=== PATIENT | male | born 1990 | race American Indian/Alaskan Native ===

== ENCOUNTER 2018-01-10 22:26 | Observation (INO) | payer BC, OTHER ==
[~2018-01-10] VITALS: Ht 182.9 cm; Wt 70.9 kg
--- NOTE | 2018-01-11 02:13 | NUR ---
ADMIT TO CCU PER STRETCHER, STOOD AND TRANSFERED TO BED. NAUSEATED AND DRY HEAVES WITH MOVEMENT. HR INC TO 150'S THEN BACK TO ONE TEENS.NAUSEA IMPROVED WITH REST. DR DUBOIS IN TO SEE PT. DOES HAVE RAHMAN, STATES HAS HX OF OCC RAHMAN'S. BOLUS OF LR INFUSING. CARDIZEM INFUSION STARTED AT 10MG/HR. GIVEN GI COCKTAIL WHICH PT PROMPTLY THROUGH UP. HR BRIEFLY DEC TO 60'S WITH EMESIS WITH 3 SEC PAUSE BUT DID NOT CONVERT. INSTRUCTED NOT TO GET UP WITHOUT CALLING STAFF. SISTER IN ROOM WITH PT.
--- NOTE | 2018-01-11 03:19 | NUR ---
DOZING, CONT ON CARDIZEM AT 10MG/HR
--- NOTE | 2018-01-11 05:18 | NUR ---
AWAKENS EASILY, STATES RAHMAN AND NAUSEA ARE BETTER. DENIES NEED TO VOID. CONT ON CARDIZEM AT 10MG/HR.
--- NOTE | 2018-01-11 05:22 | NUR ---
HR 60'S 70'S CARDIZEM DEC TO 5MG/HR
--- NOTE | 2018-01-11 07:07 | NUR ---
PT UP AMB TO BR TO VOID, SARAY WELL. HR OT 90'S WITH AMBULATION. NO NAUSEA.
--- NOTE | 2018-01-11 08:17 | NUR ---
PT AWAKE WATCHING TV FAMILY (MOTHER) AT THE BEDSIDE, PT GIVEN EDUCATION PACKET ON HIS DISEASE PROCESS AND CURENT MEDICATIONS. CARDIZEM, ATRIAL FIB, AND VASOVAGAL SYNCOPE. PT HAS BEEN UP THIS AM VOIDED AND BACK TO BED WITH HIS HR INCREASING TO THE 130 WITH AMBULATION, AND RESTING IN THE HIGH 90"S. CURRENT RATE OF THE CARDIZEM DRIP IS 5MG/HR. PT CAN FEEL HIS HEART RATE AT THIS TIME. "DON'T LIKE THE FEELING"
--- NOTE | 2018-01-11 09:02 | NUR ---
PT UP TO THE BATHROOM AT THIS TIME, VOIDED IN URINAL AND THEN BACK TO BED HEART RATE INCREASED TO THE 100'S BUT THEN BACK TO THE 80'S
--- NOTE | 2018-01-11 10:36 | NUR ---
pt contioues to be at 5mg/hr on the cardizem drip. he is now hungry so lunch ordered for him at this time. pt mother remains at the bedside.
--- NOTE | 2018-01-11 10:53 | NUR ---
PT SITING UP IN BED EATING SOME LUNCH AT THIS TIME. PT RHYTHUM REMAINS IN A-FIB AT THIS TIME WITH A REAT IN THE 90 TO 100'S. PT MOTHER REMAINS AT THE BEDSIDE. BOTH EATTING SOME LUNCH.
--- NOTE | 2018-01-11 11:16 | NUR ---
PT CONTIOUES TO BE IN A-FIB WITH A RATE IN THE 80 TO 100 AT TIMES. PT CONTIOUES TO FEEL HIS HEART IN A-FIB. HE IS TOLERATING HIS LUCH SO FAR.
--- NOTE | 2018-01-11 11:42 | NUR ---
PT TRYING TO GET SOME SLEEP AT THIS TIME, MOTHER REMAINS AT THE BEDSIDE.
--- NOTE | 2018-01-11 12:46 | NUR ---
PT AMBULATED TO THE BATHROOM HEART RATE REMAINS IN THE 90 WITH AMBULATION AT THIS TIME. VOIDING WELL, DENIES NAUSEA, AND IS TOLERATING AMBULATION. HEART RYTHUM REMAINS IN A-FIB AT HIS TIME. MOTHER AND FREINDS ARE IN THE ROOM AT THIS TIME.
--- NOTE | 2018-01-11 13:07 | NUR ---
PT GIVEN FLU VACCINE AT THIS TIME IN LEFT ARM AT THIS TIME, NO BLEEDING NOTED.
--- NOTE | 2018-01-11 17:59 | EKG ---
[facility] [address] [place] [address] Signed Atrial fibrillation with rapid ventricular response Abnormal QRS-T angle, consider primary T wave abnormality Abnormal ECG No previous ECGs available Confirmed by NELSON DUBOIS MD ([id number]) on 01/11/2018 5:58:59 PM Electronically Signed By: NELSON DUBOIS MD 01/11/18 1759 PATIENT NAME: KIRK RIZZO Electrocardiogram DATE OF : 89 PHYSICIAN: NELSON DUBOIS MD REPORT #: [id number] REPORT IS CONFIDENTIAL AND NOT TO BE RELEASED WITHOUT AUTHORIZATION
--- NOTE | 2018-01-11 18:12 | NUR ---
PT CONTIOUES TO LYE IN BED AT THIS TIME, HEART RHYTHUM REMAINS IN A-FIB WITH A RATE IN THE 70'S TO 100'S. PT MOTHER REMAINS AT THE BEDSIDE. DINNER ORDER FOR PT ALSO AT THIS TIME.
--- NOTE | 2018-01-11 18:41 | NUR ---
PT UP TO THE BATHROOM AND HIS HEART RATE CONVERTED TO SINSE RYTHUM. HIS HEART RATE IS IN THE 60'S TO 70'S AT THIS TIME. FAMILY AT THE BEDSIDE, AND PT IS HAPP THAT HE CONVERTED. CARDIZEM DRIP TURNED OFF AT THIS TIME, AND DR DUBOIS IS IN THE UNIT AT THIS TIME.
--- NOTE | 2018-01-11 20:18 | NUR ---
RESTING IN BED, VISITING WITH FAMILY. HAS NO C/O. REMAINS IN SR.
--- NOTE | 2018-01-11 23:55 | NUR ---
AWAKENED FROM SOUND SLEEP. BRIEF ASSESSMENT DONE. PT HAS NO C/O.
--- NOTE | 2018-01-12 02:13 | NUR ---
HAS BEEN SLEEPING WELL. IV INFUSED AND NOW SL. PT HAS NO C/O. DENIES NEED TO VOID AT THIS TIME. HAD VOIDED QS EARLIER. REMAIN SBRADY WHILE AT REST.
--- NOTE | 2018-01-12 04:15 | NUR ---
CONT TO SLEEP, REMAINS IN SR.
--- NOTE | 2018-01-12 06:33 | NUR ---
AWAKENES EASILY, STATES FEELING WELL. AMB TO BR WITHOUT PROBLEM TO VOID. SARAY BEING UP WELL. REMAINS IN SR.
--- NOTE | 2018-01-12 08:30 | NUR ---
PATIENT AWOKEN AND ASKED IF HE WOULD LIKE BREAKFAST. ASSESSMENT COMPLETE. PT STATES HE IS FEELING MUCH BETTER OVERALL AND DENIES PAIN AT THIS TIME. HEART RATE IN THE 60-70s WHILE RESTING, AND REMAINS IN A SINUS RHYTHM. PT UP IN ROOM TO PERFORM AM CARES FOR SELF. BREAKFAST ORDERED FOR PATIENT. PT IS SALINE LOCKED AT THIS TIME.
--- NOTE | 2018-01-12 10:20 | NUR ---
DR. DUBOIS IN TO SEE PATIENT. PLAN IS FOR PATIENT TO D/C HOME. DISCHARGE INSTUCTIONS TO BE GONE OVER WITH PATIENT.
== END 2018-01-12 11:00 | disposition home or self-care (01) ==
LOC: ED 22:26 → CCU 22:28
PROVIDERS: ADMIT Internal Medicine
PROC: 3E0234Z Introduction of Serum, Toxoid and Vaccine into Muscle, Percutaneous Approach (ICD-10-PCS; principal; 2018-01-11)
DX: I48.0 Paroxysmal atrial fibrillation (principal); K29.00 Acute gastritis without bleeding; F10.129 Alcohol abuse with intoxication, unspecified; Y90.4 Blood alcohol level of 80-99 mg/100 ml; Z88.5 Allergy status to narcotic agent; Z88.0 Allergy status to penicillin; Z23 Encounter for immunization
CPT/HCPCS: 71045; 80053; 83735; 84439; 84443; 84484; 85025; 90674; 93005; 93010; 96361; 96374; 96375; 96376; 99285; G0008; G0378; G0480; J7030; J7120